=== PATIENT | female | born 1960 | race Caucasian/White ===

== ENCOUNTER 2022-03-24 19:07 | Emergency (ER) | payer OTHER, SELFPAY ==
--- NOTE | 2022-03-24 19:31 | HMH.EDUTC ---
[facility] Disposition Clinical Impression: Need for Tdap vaccination Laceration of right thumb Qualifiers: Encounter type: initial encounter Damage to nail status: without damage Foreign body presence: without foreign body Qualified Code(s): S61.011A - Laceration without foreign body of right thumb without damage to nail, initial encounter Disposition: Home, Self-Care Condition on Discharge: Good Instructions: How to Care for a Laceration After Repair, DI for Laceration Repair -- Simple Additional Instructions: Keep the wound clean and dry. Keep a dressing on it if you are going to be getting it dirty. Watch the for signs of infection, such as redness, swelling, drainage, fever. etc. Take tylenol or ibuprofen for pain. Follow up with your regular doctor. Return in 10 days to have the sutures removed. GO TO THE ER FOR ANY WORSENING SYMPTOMS OR CONCERNS. Prescriptions: cephALEXin [cephALEXin 500mg capsule] 500 mg PO Q6H 10 Days #40 cap Transmission Status: Received by [id number] Referrals: Kristen Canas [Primary Care Provider] - Time of Disposition: 21:04 Medical Decision Making - Medical Records Medical records reviewed: No: I reviewed the patient's medical records. - Jaime Inquiry Pt receiving controlled substance: No Vital Signs: 03/24/22 19:36 Temperature 98.2 F Temperature Source Oral Pulse Rate [Left] 76 Respiratory Rate 16 Blood Pressure [Right Arm] 141/79 H Blood Pressure Mean [Right Arm] 99 02 Sat by Pulse Oximetry 97 Orders (Tests/Meds): ED MEDICATIONS Discontinued Medications Generic Name Dose Route Start Last Admin Trade Name Freq PRN Reason Stop Dose Admin Tetanus/Diphtheria Toxoids 0.5 ml 03/24/22 20:13 03/24/22 20:14 Tetanus-Diphth Toxoid, Adult 0.5ml Syr IM 03/24/22 20:14 0.5 ml .ONCE ONE Administration [facility] HPI - General Stated complaint: AO 03/24@1745 lac Right thumb Time Seen by Provider: 03/24/22 19:31 - History of Present Illness Provider Complaint: 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 She has a laceration on her right thumb. Her tetanus immunization is not up to date also. - Related Data Previous Rx's Medication Instructions Recorded cephALEXin [cephALEXin 500mg 500 mg PO Q6H 10 Days #40 cap 03/24/22 capsule] Allergies Allergy/AdvReac Type Severity Reaction Status Date / Time No Known Allergies Allergy Verified 01/12/22 10:17 [facility] History - Hepatitis A Screen Attestation statement:: This patient has been screened for Hepatitis A risk factors. I have reviewed the patient's past medical history: Yes ROS Obtained: Yes All systems reviewed & no additional complaints - Constitutional Constitutional: Denies chills, Denies fever(s) - Musculoskeletal Musculoskeletal: Denies joint pain - Integumentary/Breasts Skin/Breast: Reports as per HPI - Neurologic Neurologic: Denies tingling/numbness/burning sensations Physical Exam - General General appearance: alert, in no apparent distress - Head Head exam: atraumatic, normocephalic, normal inspection - Eye Eye exam: Present: normal appearance, PERRL, EOMI - ENT ENT exam: Present: normal exam, normal oropharynx, mucous membranes moist, TM's normal bilaterally, normal external ear exam - Neck Neck exam: Present: normal inspection, full ROM, trachea midline. Absent: meningismus, lymphadenopathy - Chest Chest inspection: Present: normal inspection, symmetric chest wall rise. Absent: tenderness - Respiratory Respiratory exam: Present: normal lung sounds bilaterally. Absent: respiratory distress - Cardiovascular Cardiovascular exam: Present: regular rate, normal rhythm. Absent: JVD - Abdominal Exam Abdominal exam: Present: soft, normal bowel sounds. Absent: distention, tenderness, guarding - Extremities Exam Extremities exam: Present: normal inspection, full ROM, abisai
[2022-03-24 19:36] VITALS: BP 141/79; PULSE 76; RESP 16; TEMP 36.8; O2SAT 97; BMI 35.4
[2022-03-24 21:06] VITALS: BP 141/79; PULSE 76; RESP 16; TEMP 36.8
== END 2022-03-24 21:15 | disposition home or self-care (01) ==
PROVIDERS: Emergency Provider Nurse Practitioner Family; PCP Internal Medicine Cardiovascular Disease
DX: S61.011A Laceration without foreign body of right thumb without damage to nail, initial encounter (principal); W45.8XXA Other foreign body or object entering through skin, initial encounter
CPT/HCPCS: 12001; 90471; 90714; 99213; G0463